=== PATIENT | female | born 1945 | race Caucasian/White ===

== ENCOUNTER 2023-12-20 11:45 | Emergency (ER) | payer MEDICARE, BC ==
[2023-12-20 12:22] LABS: BASOPHILS PERCENT AUTO 0.3 % (0.0-1.0); EOSINOPHILS PERCENT AUTO 2.2 % (1.0-3.0); HEMATOCRIT 40.2 % (37.0-47.0); HEMOGLOBIN 13.4 g/dL (12.0-16.0); LYMPHOCYTES PERCENT AUTO 21.7 % (20.5-50.1); MEAN CORPUSCULAR HEMOGLOBIN 29.4 pg (27.0-34.0); MEAN CORPUSCULAR HGB CONC 33.3 g/dL (33.0-35.0); MEAN CORPUSCULAR VOLUME 88.2 fL (80-100); MONOCYTES PERCENT AUTO 8.8 % (2-8); PLATELET COUNT,PLT 292 10^3/uL (150-450); RED BLOOD CELL COUNT 4.56 10^6/uL (4.2-5.4); WHITE BLOOD CELL COUNT,WBC 6.5 10^3/uL (5.0-10.0)
[2023-12-20] MEDS: Sodium Chloride 0.9% 10 ML Syringe FLUSH PRN (12:28)
[2023-12-20 12:42] LABS: A/G RATIO 0.9; ALBUMIN 3.4 g/dL (3.4-5.0); ANION GAP 9.8 mEq/L (7-13); BILIRUBIN TOTAL 0.3 mg/dL (0.2-1.0); BUN/CREATININE RATIO 18.9 (No establ ref range); CALCIUM 8.9 mg/dL (8.5-10.1); CREATININE 0.74 mg/dL (0.55-1.02); EST CRCL DRUG DOSING (CG) 50.35 mL/min; POTASSIUM,K 3.8 mmol/L (3.5-5.1)
== END 2023-12-20 14:33 | disposition home or self-care (01) ==
LOC: DL.ED 11:45
DX: R07.89 Other chest pain (principal); R42 Dizziness and giddiness; I10 Essential (primary) hypertension; Z86.19 Personal history of other infectious and parasitic diseases; Z87.891 Personal history of nicotine dependence
CPT/HCPCS: 36415; 71045; 80053; 83880; 84484; 85025; 93005; 99285; J3490

== ENCOUNTER 2024-11-22 10:51 | Emergency (ER) | payer MEDICARE, BC ==
[2024-11-22 11:22] LABS: BASOPHILS PERCENT AUTO 0.3 % (0.0-1.0); EOSINOPHILS PERCENT AUTO 1.9 % (1.0-3.0); HEMATOCRIT 42.8 % (37.0-47.0); HEMOGLOBIN 14.3 g/dL (12.0-16.0); LYMPHOCYTES PERCENT AUTO 16.7 % (20.5-50.1); MEAN CORPUSCULAR HEMOGLOBIN 29.6 pg (27.0-34.0); MEAN CORPUSCULAR HGB CONC 33.4 g/dL (33.0-35.0); MEAN CORPUSCULAR VOLUME 88.6 fL (80-100); MONOCYTES PERCENT AUTO 8.3 % (2-8); NEUTROPHILS PERCENT AUTO 72.8 % (42.2-75.2); PLATELET COUNT,PLT 269 10^3/uL (150-450); RED BLOOD CELL COUNT 4.83 10^6/uL (4.2-5.4); WHITE BLOOD CELL COUNT,WBC 6.7 10^3/uL (5.0-10.0)
[2024-11-22 11:46] LABS: B-TYPE NATRIURETIC PEPTIDE,BNP 40 pg/ml (0-100)
[2024-11-22 11:47] LABS: PROTHROMBIN TIME 10.2 SEC (9.0-12.0); PTT,PARTIAL THROMBOPLSTIN TIME 25.5 SEC (22.0-34.0)
[2024-11-22 11:52] LABS: A/G RATIO 0.9; ALANINE AMINOTRANSFERASE,ALT 22 U/L (14-59); ALBUMIN 3.6 g/dL (3.4-5.0); ALKALINE PHOSPHATASE 59 U/L (46-116); ANION GAP 13.2 mEq/L (7-13); ASPARTATE AMNIOTRANSFERASE,AST 18 U/L (15-37); BILIRUBIN TOTAL 0.4 mg/dL (0.2-1.0); BLOOD UREA NITROGEN,BUN 12 mg/dL (7-18); BUN/CREATININE RATIO 15.4 (No establ ref range); C-REACTIVE PROTEIN < 0.50 ng/dL (<=0.50); CALCIUM 9.4 mg/dL (8.5-10.1); CARBON DIOXIDE,CO2 28 mmol/L (21-32); CHLORIDE,CL 104 mmol/L (98-107); CREATININE 0.78 mg/dL (0.55-1.02); EST CRCL DRUG DOSING (CG) 51.33 mL/min; ESTIMATED GFR 78 mL/min (>=60); GLUCOSE RANDOM 116 mg/dL (70-99); MAGNESIUM 2.1 mg/dL (1.8-2.4); POTASSIUM,K 4.2 mmol/L (3.5-5.1); PROTEIN TOTAL,TP 7.4 g/dL (6.4-8.2); SODIUM,NA 141 mmol/L (136-145); TSH ULTRASENSITIVE 0.73 uIU/mL (0.36-3.74)
== END 2024-11-22 12:19 | disposition home or self-care (01) ==
LOC: DL.ED 10:51
DX: R07.9 Chest pain, unspecified (principal); F41.9 Anxiety disorder, unspecified; I10 Essential (primary) hypertension; E66.9 Obesity, unspecified; M19.90 Unspecified osteoarthritis, unspecified site; Z79.899 Other long term (current) drug therapy; Z79.02 Long term (current) use of antithrombotics/antiplatelets; Z68.27 Body mass index [BMI] 27.0-27.9, adult
CPT/HCPCS: 36415; 71045; 80053; 83735; 83880; 84443; 84484; 85025; 85610; 85730; 86140; 93005; 99285